=== PATIENT | male | born 1970 | race Caucasian/White ===

== ENCOUNTER 2017-12-01 11:09 | Emergency (ER) | payer OTHER ==
[~2017-12-01] VITALS: Ht 172.7 cm; Wt 102.1 kg
--- NOTE | 2017-12-01 11:23 | ED GENERAL ADULT ---
History of Present Illness General Chief Complaint: Male Genitourinary Problems Stated Complaint: PT STATES "I'M PASSING A KIDNEY STONE" Vital Signs & Intake/Output Vital Signs & Intake/Output Vital Signs Date Time Temp Pulse Resp B/P B/P Pulse O2 O2 Flow FiO2 Mean Ox Delivery Rate 12/01 1346 98.0 78 20 132/80 98 Room Air 12/01 1226 96 Room Air 12/01 1117 97.8 102 20 130/94 99 Room Air Allergies Coded Allergies: NSAIDS (Non-Steroidal Anti-Inflamma (BLEEDING - PT HAS HEMOPHILIA 12/01/17) aspirin (BLEEDING 12/01/17) ketorolac (From TORADOL) (BLEEDING 12/01/17) morphine (SWELLING 12/01/17) Reconcile Medications Amlodipine Besylate 10 MG TABLET 1 TAB PO DAILY BP (Reported) Duloxetine HCl 30 MG CAPSULE.DR 90 MG PO DAILY MENTAL HEALTH/NERVE PAIN ( Reported) Hydroxyzine HCl (hydrOXYzine HCl) 25 MG TABLET 1 TAB PO TID PRN ANXIETY ( Reported) Lisinopril 20 MG TABLET 1 TAB PO DAILY BP (Reported) Metoprolol Succ XL (Toprol Xl) 50 MG TAB 1 TAB PO DAILY HEART/BP (Reported) Multiple Vitamin (Multivitamins) 1 EACH TABLET 1 TAB PO DAILY SUPPLEMENT ( Reported) Pantoprazole Sodium 40 MG TABLET.DR 1 TAB PO PRN GI (Reported) Tamsulosin HCl 0.4 MG CAP.ER.24H 1 CAP PO PRN KIDNEY STONES (Reported) Trazodone HCl 150 MG TABLET 0.5-1 TAB PO QHS SLEEP (Reported) Vitamin B Complex 1 EACH CAPSULE 1 CAP PO DAILY SUPPLEMENT (Reported) Triage Note: LEFT FLANK PAIN THAT RADIATES INTO GROIN SINCE 0400. PT STATES HE HAS HEMOPHYLIA AND HAS COPIOUS AMOUNTS OF BLOOD IN URINE NOW Past History Travel History Traveled to [place] past 21 day No Medical History Neurological: NONE EENT: NONE Cardiovascular: hypertension Respiratory: NONE Gastrointestinal: NONE Hepatic: NONE Renal: NONE Musculoskeletal: NONE Psychiatric: NONE Endocrine: NONE Blood Disorders: hemophilia Psychosocial History What is your primary language [place] Tobacco Use: Never used ETOH Use: denies use Illicit Drug Use: denies illicit drug use Progress Plan of Care: Orders Procedure Date/time Status URINE DRUG SCREEN FOR ER ONLY 12/01 1211 Complete PARTIAL THROMBOPLASTIN TIME 12/01 1211 Complete PROTHROMBIN TIME 12/01 1211 Complete COMPREHENSIVE METABOLIC PANEL 12/01 1211 Complete CBC WITHOUT DIFFERENTIAL 12/01 1210 Complete URINALYSIS 12/01 1119 Complete Laboratory Tests 12/01/17 1246: Urine Opiates Screen 1327.00, Methadone Screen 55, Barbiturate Screen < 60, Ur Phencyclidine Scrn < 6.00, Amphetamines Screen 135, U Benzodiazepines Scrn < 85, Urine Cocaine Screen < 50, Urine Cannabis Screen < 5.00, Urine Color PINK H, Urine Clarity HAZY H, Urine pH 6.5, Ur Specific [place] 1.020, Urine Protein 30 H, Urine Ketones NEG, Urine Nitrite NEG, Urine Bilirubin NEG, Urine Urobilinogen 0.2, Ur Leukocyte Esterase NEG, Ur Microscopic SEDIMENT EXAMINED, Urine RBC PACKD H, Urine Mucus RARE, Urine Hemoglobin LARGE H, Urine Glucose NEG 12/01/17 1230: Anion Gap 11, Estimated GFR > 60, BUN/Creatinine Ratio 13.3, Glucose 84, Calcium 8.8, Total Bilirubin 0.4, AST 19, ALT 43, Alkaline Phosphatase 70, Total Protein 5.7 L, Albumin 3.4 L, Globulin 2.3, Albumin/Globulin Ratio 1.5, PT 10.0, INR 0.95, APTT 41 H, CBC w Diff NO MAN DIFF REQ, RBC 3.94 L, MCV 77.9 L, MCH 25.4 L, RDW 16.4 H, MPV 7.0 L, Gran % 55.9, Lymphocytes % 24.6, Monocytes % 12.2 H, Eosinophils % 5.6 H, Basophils % 1.7, Absolute Granulocytes 2.4, Absolute Lymphocytes 1.0 L, Absolute Monocytes 0.5, Absolute Eosinophils 0.2, Absolute Basophils 0.1, PUBS MCHC 32.5 L Departure Departure Condition: Stable Departure Forms: Customer Survey General Discharge Information
[2017-12-01 12:38] LABS: ABSOLUTE BASOPHIL COUNT 0.1 /CUMM (0.0-0.2); ABSOLUTE EOSINOPHIL COUNT 0.2 /CUMM (0.0-0.7); ABSOLUTE GRANULOCYTE CT 2.4 /CUMM (1.4-6.5); ABSOLUTE MONOCYTE COUNT 0.5 /CUMM (0.10-0.60); BASOPHIL % 1.7 % (0.0-2.0); EOSINOPHIL % 5.6 % (0-5); GRANULOCYTE % 55.9 % (42.2-75.2); HEMATOCRIT 30.7 % (42-52); MEAN CORPUSCULAR HGB 25.4 PG (27.0-31.0); MEAN CORPUSCULAR HGB CONC 32.5 G/DL (33.0-37.0); MEAN CORPUSCULAR VOLUME 77.9 FL (80.0-94.0); PLATELET COUNT 312 /CUMM (130-400); RBC DISTRIBUTION WIDTH 16.4 % (11.5-14.5); RED BLOOD CELL CT 3.94 /CUMM (4.70-6.10); WHITE BLOOD CELL COUNT 4.2 /CUMM (4.8-10.8)
[2017-12-01 12:49] LABS: PTT 41 SEC (25-37)
--- NOTE | 2017-12-01 13:33 | ED GI/GU/ABDOMINAL COMPLAINT ---
History of Present Illness General Chief Complaint: Male Genitourinary Problems Stated Complaint: PT STATES "I'M PASSING A KIDNEY STONE" Source: patient, old records Exam Limitations: no limitations Allergies Coded Allergies: NSAIDS (Non-Steroidal Anti-Inflamma (BLEEDING - PT HAS HEMOPHILIA 12/01/17) aspirin (BLEEDING 12/01/17) ketorolac (From TORADOL) (BLEEDING 12/01/17) morphine (SWELLING 12/01/17) Reconcile Medications Amlodipine Besylate 10 MG TABLET 1 TAB PO DAILY BP (Reported) Duloxetine HCl 30 MG CAPSULE.DR 90 MG PO DAILY MENTAL HEALTH/NERVE PAIN ( Reported) Hydroxyzine HCl (hydrOXYzine HCl) 25 MG TABLET 1 TAB PO TID PRN ANXIETY ( Reported) Lisinopril 20 MG TABLET 1 TAB PO DAILY BP (Reported) Metoprolol Succ XL (Toprol Xl) 50 MG TAB 1 TAB PO DAILY HEART/BP (Reported) Multiple Vitamin (Multivitamins) 1 EACH TABLET 1 TAB PO DAILY SUPPLEMENT ( Reported) Pantoprazole Sodium 40 MG TABLET.DR 1 TAB PO PRN GI (Reported) Tamsulosin HCl 0.4 MG CAP.ER.24H 1 CAP PO PRN KIDNEY STONES (Reported) Trazodone HCl 150 MG TABLET 0.5-1 TAB PO QHS SLEEP (Reported) Vitamin B Complex 1 EACH CAPSULE 1 CAP PO DAILY SUPPLEMENT (Reported) Triage Note: LEFT FLANK PAIN THAT RADIATES INTO GROIN SINCE 0400. PT STATES HE HAS HEMOPHYLIA AND HAS COPIOUS AMOUNTS OF BLOOD IN URINE NOW Triage Nurses Notes Reviewed? yes Onset: Abrupt Duration: day(s): (1), constant, continues in ED, getting worse Timing: recent history Quality/Severity: sharpness, stabbing Severity Numbers: 10 Location: left flank Radiation: back, groin Activities at Onset: none Prior Abdominal Problems: similar symptoms Past Sexual History: Unobtainable at this time No Modifying Factors: none Modifying Factors: Worsens With: movement, palpation. Associated Symptoms: abdominal pain, lower back pain HPI: 47-year-old male past medical history of hemophilia and kidney stones presents for evaluation of left flank pain radiating to his back and groin. Patient states symptoms started about 4:00 this morning and has been getting worse. The pain is described as sharp stabbing pain and rates it as a 10 out of 10. He's had this in the past multiple times associated with kidney stones. He reports hematuria. He states that he gave himself an injection of factor concentrate this morning. He reports associated nausea but no vomiting. He is able to eat and drink. He denies any fever, difficulty urinating, chest pain, shortness of breath, hemoptysis. He currently does not have a urologist. He is not taking any medicine for the pain but reports multiple allergies and states only thing that works is Dilaudid. (Tim Rodriguez) Vital Signs & Intake/Output Vital Signs & Intake/Output Vital Signs Date Time Temp Pulse Resp B/P B/P Pulse O2 O2 Flow FiO2 Mean Ox Delivery Rate 12/01 1346 98.0 78 20 132/80 98 Room Air 12/01 1226 96 Room Air 12/01 1117 97.8 102 20 130/94 99 Room Air (Juan C Jensen DO) Past History Travel History Traveled to [place] past 21 day No Medical History Any Pertinent Medical History? see below for history Neurological: NONE EENT: NONE Cardiovascular: hypertension Respiratory: NONE Gastrointestinal: NONE Hepatic: NONE Renal: NONE Musculoskeletal: NONE Psychiatric: NONE Endocrine: NONE Blood Disorders: hemophilia Surgical History Surgical History: none Psychosocial History What is your primary language [place]ian Tobacco Use: Never used ETOH Use: denies use Illicit Drug Use: denies illicit drug use Family History Hx Contributory? No (Tim Rodriguez) Review of Systems Review of Systems Constitutional: Reports: no symptoms. EENTM: Reports: no symptoms. Respiratory: Reports: no symptoms. Cardiovascular: Reports: no symptoms. GI: Reports: see HPI, abdominal pain. Genitourinary: Reports: no symptoms. Musculoskeletal: Reports: see HPI, back pain. Skin: Reports: no symptoms. Neurological/Psychological: Reports: no symptoms. Hematologic/Endocrine: Reports: no symptoms. Immunologic/Allergic: Reports: no symptoms. All Other Systems: Reviewed and Negative (Tim Rodriguez) Physical Exam Physical Exam General Appearance: well developed/nourished, alert, awake, moderate distress Head: atraumatic, normal appearance Eyes: Bilateral: normal appearance, PERRL, EOMI. Ears, Nose, Throat, Mouth: hearing grossly normal, moist mucous membrane Neck: normal inspection, supple, full range of motion Respiratory: normal breath sounds, chest non-tender, no respiratory distress, lungs clear Cardiovascular: regular rate/rhythm, normal peripheral pulses Peripheral Pulses: 2+ radial (R), 2+ radial (L) Gastrointestinal: normal bowel sounds, soft, no organomegaly, tenderness (LEFT FLANK, LLQ) Back: normal inspection, normal range of motion, LUMBAR PARASPINOUS MUSCLES 100 PALPATION OF THE LEFT Extremities: normal range of motion Neurologic/Psych: no motor/sensory deficits, awake, alert, oriented x 3, normal gait, normal mood/affect Skin: intact, normal color, warm/dry Core Measures ACS in differential dx? No Sepsis Present: No Sepsis Focused Exam Completed? No (Eduardo SELBY,Tim) Progress Differential Diagnosis: diverticulitis, pyelonephritis, ureterolithiasis, urinary retention, urethritis, UTI/pyelo Diagnostic Imaging: Viewed by Me: CT Scan. Discussed w/RAD: CT Scan. Radiology Impression: PATIENT: QUETA DICKERSON PRESENT AGE: 47 PATIENT ACCOUNT NO: [id number] : 70 LOCATION: [facility], [place] ORDERING PHYSICIAN: Tim SELBY SERVICE DATE: 12/01/17 EXAM TYPE: CAT - CT ABD & PELVIS W/O IV CONTRAS EXAMINATION: CT ABDOMEN AND PELVIS WITHOUT CONTRAST CLINICAL INFORMATION: Left back, flank pain. COMPARISON: None TECHNIQUE: Multidetector volumetric imaging was performed from the superior aspect of the liver through the pubic symphysis. Sagittal and coronal reformatted images were obtained on the technologist's workstation. DLP: 1099.43 mGy-cm FINDINGS: LUNG BASES: The visualized lung bases are unremarkable. LIVER, GALLBLADDER, AND BILIARY TREE: A few tiny scattered punctate radiodensities are seen within the liver parenchyma, most consistent with granulomatous disease. The gallbladder is not visualized, presumably surgically absent. PANCREAS: Unremarkable. SPLEEN: Unremarkable. Splenule is also noted around the hilum. ADRENAL GLANDS: Unremarkable. KIDNEYS AND URETERS: Numerous tiny punctate calcific densities are seen throughout both renal parenchyma projecting within the cortex as well as medullary region, consistent with nephrocalcinosis. Both urinary collecting systems and both ureters appear decompressed. BLADDER: Suboptimally distended, grossly appear unremarkable. GASTROINTESTINAL TRACT: Significant fecal residual is noted throughout the entire large bowel. There is no abnormal bowel wall thickening, air-fluid level identified. The appendix is visualized and appears unremarkable. Postsurgical changes are noted within the stomach and proximal small bowel. ABDOMINAL WALL: No significant hernia is appreciated. Nonspecific soft tissue thickening is noted in the region of the left lower pelvic wall including the left inguinal region, likely represent postsurgical change. Please correlate clinically. LYMPH NODES: Normal. VASCULAR: Diffuse atherosclerotic disease is noted within the aorta and its branches. Incidental note is made of a left-sided retroaortic renal vein. PELVIC VISCERA: There is no pelvic mass present. There is no free fluid and/or free air present. OSSEOUS STRUCTURES: No suspicious lytic or sclerotic abnormality is present. IMPRESSION: 1. Numerous tiny punctate calcific densities are seen throughout both kidneys, consistent with nephrocalcinosis. Both renal collecting systems and both ureters appear decompressed. 2. A few tiny scattered punctate radiodensities are seen within the liver parenchyma, most consistent with granulomatous disease. 3. Nonvisualized gallbladder, presumably surgically absent. 4. Unremarkable appendix. 5. Postsurgical changes within the stomach and likely within the left inguinal region. DICTATED BY: Uday Veronica MD DATE/TIME DICTATED:12/01/171309 SUPERVISOR OF WAY:SONIA DATE/TIME TRANSCRIBED:12/01/171309 CONFIDENTIAL, DO NOT COPY WITHOUT APPROPRIATE AUTHORIZATION. Initial ED EKG: none (Eduardo SELBY,Tim) Plan of Care: Orders Procedure Date/time Status URINE DRUG SCREEN FOR ER ONLY 12/01 1211 Complete PARTIAL THROMBOPLASTIN TIME 12/01 1211 Complete PROTHROMBIN TIME 12/01 1211 Complete COMPREHENSIVE METABOLIC PANEL 12/01 1211 Complete CBC WITHOUT DIFFERENTIAL 12/01 1211 Complete URINALYSIS 12/01 1119 Complete Laboratory Tests 12/01/17 1246: Urine Opiates Screen 1327.00, Methadone Screen 55, Barbiturate Screen < 60, Ur Phencyclidine Scrn < 6.00, Amphetamines Screen 135, U Benzodiazepines Scrn < 85, Urine Cocaine Screen < 50, Urine Cannabis Screen < 5.00, Urine Color PINK H, Urine Clarity HAZY H, Urine pH 6.5, Ur Specific [place] 1.020, Urine Protein 30 H, Urine Ketones NEG, Urine Nitrite NEG, Urine Bilirubin NEG, Urine Urobilinogen 0.2, Ur Leukocyte Esterase NEG, Ur Microscopic SEDIMENT EXAMINED, Urine RBC PACKD H, Urine Mucus RARE, Urine Hemoglobin LARGE H, Urine Glucose NEG 12/01/17 1230: Anion Gap 11, Estimated GFR > 60, BUN/Creatinine Ratio 13.3, Glucose 84, Calcium 8.8, Total Bilirubin 0.4, AST 19, ALT 43, Alkaline Phosphatase 70, Total Protein 5.7 L, Albumin 3.4 L, Globulin 2.3, Albumin/Globulin Ratio 1.5, PT 10.0, INR 0.95, APTT 41 H, CBC w Diff NO MAN DIFF REQ, RBC 3.94 L, MCV 77.9 L, MCH 25.4 L, RDW 16.4 H, MPV 7.0 L, Gran % 55.9, Lymphocytes % 24.6, Monocytes % 12.2 H, Eosinophils % 5.6 H, Basophils % 1.7, Absolute Granulocytes 2.4, Absolute Lymphocytes 1.0 L, Absolute Monocytes 0.5, Absolute Eosinophils 0.2, Absolute Basophils 0.1, PUBS MCHC 32.5 L Patient seen and evaluated. He has a history of kidney stones and feels like he is having kidney stone pain today. He gave himself an injection of factor concentrate this morning. We'll check basic labs CT scan of the abdomen and pelvis without contrast. Patient medicated with Dilaudid. Patient passed a kidney stone while giving a urine sample. No evidence of infection in the urine. Patient is still reporting stenotic pain. Blood work does not show any acute findings. CT scan of the abdomen and pelvis shows no hydronephrosis or hydroureter. Patient is feeling much better after medications. He is able tolerate food and fluids. He'll be discharged home with instructions to rest and plenty of fluids follow up with primary care doctor and urologist. Discussed return precautions patient is nontoxic- appearing and agrees the plan (Tim Rodriguez) (Juan C Jensen DO) Departure Departure Disposition: HOME OR SELF CARE Condition: Stable Clinical Impression Primary Impression: Nephrolithiasis Referrals: Patient Has No Primary Care Dr (PCP/Family) Johny Moore MD Additional Instructions: Follow-up with urologist Dr. Moore as soon as possible. Rest and drink plenty of fluids. Monitor symptoms or return with any concerns. Departure Forms: Customer Survey General Discharge Information (Tim Rodriguez) PA/COLLISION MECHANIC Co-Sign Statement Statement: ED Attending supervision documentation- [X] I saw and evaluated the patient. I have also reviewed all the pertinent lab results and diagnostic results. I agree with the findings and the plan of care as documented in the PA's/COLLISION MECHANIC's documentation. [] I have reviewed the ED Record and agree with the PA's/COLLISION MECHANIC's documentation. [] Additions or exceptions (if any) to the PAs/COLLISION MECHANIC's note and plan are summarized below: [] (Juan C Jensen DO)
[2017-12-01 13:46] VITALS: BP 132/80
--- NOTE | 2017-12-01 13:54 | CT SCAN REPORT ---
EXAMINATION: CT ABDOMEN AND PELVIS WITHOUT CONTRAST CLINICAL INFORMATION: Left back, flank pain. COMPARISON: None TECHNIQUE: Multidetector volumetric imaging was performed from the superior aspect of the liver through the pubic symphysis. Sagittal and coronal reformatted images were obtained on the technologist's workstation. DLP: 1099.43 mGy-cm FINDINGS: LUNG BASES: The visualized lung bases are unremarkable. LIVER, GALLBLADDER, AND BILIARY TREE: A few tiny scattered punctate radiodensities are seen within the liver parenchyma, most consistent with granulomatous disease. The gallbladder is not visualized, presumably surgically absent. PANCREAS: Unremarkable. SPLEEN: Unremarkable. Splenule is also noted around the hilum. ADRENAL GLANDS: Unremarkable. KIDNEYS AND URETERS: Numerous tiny punctate calcific densities are seen throughout both renal parenchyma projecting within the cortex as well as medullary region, consistent with nephrocalcinosis. Both urinary collecting systems and both ureters appear decompressed. BLADDER: Suboptimally distended, grossly appear unremarkable. GASTROINTESTINAL TRACT: Significant fecal residual is noted throughout the entire large bowel. There is no abnormal bowel wall thickening, air-fluid level identified. The appendix is visualized and appears unremarkable. Postsurgical changes are noted within the stomach and proximal small bowel. ABDOMINAL WALL: No significant hernia is appreciated. Nonspecific soft tissue thickening is noted in the region of the left lower pelvic wall including the left inguinal region, likely represent postsurgical change. Please correlate clinically. LYMPH NODES: Normal. VASCULAR: Diffuse atherosclerotic disease is noted within the aorta and its branches. Incidental note is made of a left-sided retroaortic renal vein. PELVIC VISCERA: There is no pelvic mass present. There is no free fluid and/or free air present. OSSEOUS STRUCTURES: No suspicious lytic or sclerotic abnormality is present. IMPRESSION: 1. Numerous tiny punctate calcific densities are seen throughout both kidneys, consistent with nephrocalcinosis. Both renal collecting systems and both ureters appear decompressed. 2. A few tiny scattered punctate radiodensities are seen within the liver parenchyma, most consistent with granulomatous disease. 3. Nonvisualized gallbladder, presumably surgically absent. 4. Unremarkable appendix. 5. Postsurgical changes within the stomach and likely within the left inguinal region.
[2017-12-01] MEDS ORDERED: AMLODIPINE BESY10 M1 PO (15:33)
[2017-12-01] MEDS ORDERED: LISINOPRIL20 M1 PO (15:33)
[2017-12-01] MEDS ORDERED: TOPROL XL50 M1 PO (15:33)
[2017-12-01] MEDS ORDERED: DULOXETINE HCL30 MG PO (15:34)
[2017-12-01] MEDS ORDERED: TRAZODONE HCL150 M1 PO (15:34)
[2017-12-01] MEDS ORDERED: TAMSULOSIN HCL0.4 M1 PO (15:35)
[2017-12-01] MEDS ORDERED: PANTOPRAZOLE SO40 M1 PO (15:35)
[2017-12-01] MEDS ORDERED: HYDROXYZINE HCL25 M3 PO (15:35)
[2017-12-01] MEDS ORDERED: VITAMIN B COMP1 EACH PO (15:36)
[2017-12-01] MEDS ORDERED: MULTIVITAMINS1 EAC9 PO (15:36)
== END 2017-12-01 15:51 ==
LOC: ERH 11:09 → EDBD 11:42 → ERH 15:51
PROVIDERS: Physician Assistant Medical
DX: N20.0 Calculus of kidney (principal)
CPT/HCPCS: 74176; 80307; 81001; 96361; 96374; 96376